=== PATIENT | male | born 1950 | race Caucasian/White ===

== ENCOUNTER 2025-04-30 10:00 | Outpatient (CLI) | payer OTHER ==
[~2025-04-30] VITALS: Ht 167.6 cm; Wt 68.9 kg
[2025-04-30] MEDS: albuterol 2.5 MG/3 ML nebule NEB ONE (10:52)
[2025-04-30 10:53] VITALS: PULSE 66; RESP 18; O2SAT 66
[2025-04-30 11:04] VITALS: PULSE 71; RESP 15
--- NOTE | 2025-04-30 15:04 | PROCEDURE NOTE - Respiratory ---
Procedure Note-Respiratory Providers to CC Copies To 1: NEHA WETZEL DO Procedure Name: This is a spirometry study dated April 30, 2025. The spirometry study was performed both before and after inhaled bronchodilator. Spirometry measurements: There is significant reduction in both the vital capacity and the FEV1 measurements. The FEV1 ratio is also reduced. All of the measured flow rates show substantial reduction. After inhaled bronchodilator was administered, there is small but significant improvement in the FEV1 and some of the flow rate measurements. Conclusion: This study is abnormal. 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 The patient improved slightly with inhaled bronchodilator. Regular use of bronchodilator medication may help this patient improve clinically. In addition to the obstructive airway process, there is also evidence for a restrictive ventilatory defect. This restrictive process is in the moderate category and may in fact relate to asbestosis. We have no previous studies for comparison. ESTHER ANDREWS MD Apr 30, 2025 15:04
== END 2025-04-30 23:59 | disposition home or self-care (01) ==
LOC: RT 10:00
PROVIDERS: ATTEND Chiropractor
DX: J61 Pneumoconiosis due to asbestos and other mineral fibers (principal)
CPT/HCPCS: 94060; 94760; J7030